=== PATIENT | female | born 1980 | race Caucasian/White ===

== ENCOUNTER 2017-03-16 20:14 | Emergency (ER) | payer SELFPAY ==
[2017-03-16] MEDS ORDERED: Acetaminophen 500 MG TAB ONE (20:26)
[2017-03-16] MEDS ORDERED: Lorazepam 2 MG/ML VIAL ONE ×2 (20:26→20:48)
== END 2017-03-16 21:28 | disposition home or self-care, planned readmission (81) ==
LOC: NAV ERS 20:14
DX: F41.9 Anxiety disorder, unspecified (principal); I10 Essential (primary) hypertension; F17.210 Nicotine dependence, cigarettes, uncomplicated
CPT/HCPCS: 93005; 96372; J2060

== ENCOUNTER 2017-11-25 09:51 | Emergency (ER) | payer SELFPAY ==
[2017-11-25] MEDS ORDERED: HYDROcodone/Acetaminophen 10/325 mg Tablet ONE (10:34)
--- NOTE | 2017-11-25 11:19 | RAD ---
CHEST 2 VIEWS: Date: 11/25/17 HISTORY: Chest pain. FINDINGS: Cardiac silhouette and pulmonary vasculature are upper limits of normal. Mediastinum is midline. Ther e is no confluent air space consolidation, pneumothorax, or pleural fluid evident. IMPRESSION: No active cardiopulmonary abnormalities are demonstrated. POS: OFF
--- NOTE | 2017-11-25 11:23 | RAD ---
RIGHT SHOULDER 3 VIEWS: HISTORY: Right shoulder pain. FINDINGS: Acromioclavicular and glenohumeral alignment are maintained with mild osteophytosis. No acute fractu re, dislocation, or aggressive osseous erosions. IMPRESSION: No acute osseous abnormalities are demonstrated. POS: OFF
== END 2017-11-25 11:35 | disposition home or self-care (01) ==
LOC: NAV ERS 09:51
DX: R07.89 Other chest pain (principal); I10 Essential (primary) hypertension; M70.821 Other soft tissue disorders related to use, overuse and pressure, right upper arm; F41.9 Anxiety disorder, unspecified; F17.210 Nicotine dependence, cigarettes, uncomplicated; Z79.899 Other long term (current) drug therapy
CPT/HCPCS: 71046

== ENCOUNTER 2017-12-05 12:13 | Emergency (ER) | payer SELFPAY ==
[2017-12-05] MEDS ORDERED: Adacel (T-DAP) 0.5 ML VIAL ONE (12:50)
--- NOTE | 2017-12-05 13:32 | RAD ---
EXAM: LEFT FIFTH DIGIT TWO VIEWS HISTORY: Pain. FINDINGS: Two views of the left fifth digit are submitted for interpretation. The lateral projection is subopt imal. Based on the oblique image, no definite fracture, cortical irregularity, or periosteal reactio n. IMPRESSION: No definite fracture. Suboptimal lateral projection. Consider repeat additional imaging. POS: MARTINA
== END 2017-12-05 13:58 | disposition home or self-care (01) ==
LOC: NAV ERS 12:13
DX: S91.115A Laceration without foreign body of left lesser toe(s) without damage to nail, initial encounter (principal); I10 Essential (primary) hypertension; F17.210 Nicotine dependence, cigarettes, uncomplicated; W23.0XXA Caught, crushed, jammed, or pinched between moving objects, initial encounter
CPT/HCPCS: 90471; 90715; 99406

== ENCOUNTER 2019-02-19 14:56 | Emergency (ER) | payer SELFPAY ==
[2019-02-19 15:48] LABS: #Basophils 0.1 thou/uL (0.0-0.2); #Eosinphils 0.3 thou/uL (0.0-0.7); #Lymphocytes 1.9 thou/uL (1.20-3.40); #Monocytes 0.5 thou/uL (0.11-0.59); #Neutrophils 7.6 thou/uL (1.40-6.50); %Basophils 0.6 % (0.0-1.0); %Eosinophils 2.8 % (0.0-10.0); %Lymphocytes 18.4 % (21.0-51.0); %Monocytes 5.1 % (0.0-10.0); %Neutrophils 73.1 % (42.0-75.0); Hemoglobin 9.7 g/dL (12.0-16.0); Mean Corpuscular HGB CONC 29.9 g/dL (32.0-36.0); Mean Corpuscular Hemoglobin 25.4 pg (27.0-31.0); Mean Corpuscular Volume 84.8 fL (78.0-98.0); Mean Platelet Volume 6.6 fL (7.4-10.4); Platelet Count 361 thou/uL (130-400); RBC Distribution Width 15.5 % (11.5-14.5); Red Blood Cell (RBC) Count 3.82 mill/uL (4.20-5.40); White Blood Cell (WBC) Count 10.4 thou/uL (4.8-10.8)
[2019-02-19 15:53] LABS: ALT (SGPT) 16 U/L (8-55); AST (SGOT) 20 U/L (5-34); Albumin 3.5 g/dL (3.5-5.0); Alkaline Phosphatase 101 U/L (40-150); Anion Gap 15 mmol/L (10-20); BUN (Urea Nitrogen) 11 mg/dL (7.0-18.7); Bilirubin, Total 0.4 mg/dL (0.2-1.2); Calc. Creatinine Clearance 0 mL/min (70-130); Calcium 8.9 mg/dL (7.8-10.44); Carbon Dioxide 27 mmol/L (22-29); Chloride 97 mmol/L (98-107); Estimated GFR-MDRD 81; Globulin 3.2 g/dL (2.4-3.5); Glucose 104 mg/dL (70-105); Potassium 3.5 mmol/L (3.5-5.1); Protein, Total 6.7 g/dL (6.0-8.3); Sodium 135 mmol/L (136-145)
--- NOTE | 2019-02-19 16:13 | ULT ---
Venous duplex sonogram bilateral lower extremity HISTORY: Bilateral leg pain and edema. FINDINGS: Each common femoral vein and greater saphenous junction were evaluated along with each femo ral, deep femoral, popliteal, and posterior tibial veins. There is good color and spectral Doppler flow and compression. No internal echoes. IMPRESSION: No sonographic evidence of DVT within either lower extremity.
[2019-02-19 16:55] LABS: Hypochromia SLIGHT = 6-15 cells (100X) (0-5/hpf); MDiff Complete? YES; Platelet Morphology Comment Appears Adequate
== END 2019-02-19 16:39 | disposition home or self-care (01) ==
LOC: NAV ERS 14:56
DX: R60.0 Localized edema (principal); I10 Essential (primary) hypertension; F17.210 Nicotine dependence, cigarettes, uncomplicated; F41.9 Anxiety disorder, unspecified; Z79.899 Other long term (current) drug therapy
CPT/HCPCS: 36415; 80053; 83880; 85025; 93005; 93970

== ENCOUNTER 2019-09-03 16:41 | Emergency (ER) | payer SELFPAY | END 2019-09-03 17:11 | disposition home or self-care (01) | LOC: NAV ERS 16:41 | DX: J20.9 Acute bronchitis, unspecified (principal); I10 Essential (primary) hypertension; F41.9 Anxiety disorder, unspecified; F17.210 Nicotine dependence, cigarettes, uncomplicated | CPT/HCPCS: 99281 ==